=== PATIENT | female | born 1960 | race Caucasian/White ===

== ENCOUNTER 2018-04-28 12:18 | Outpatient (CLI) | payer OTHER ==
--- NOTE | 2018-04-28 15:06 | RAD ---
CHEST PA AND LATERAL: HISTORY: A 57-year-old female with a history of cough for three weeks. COMPARISON: 03/17/2014 FINDINGS: Heart size is within normal limits. Lungs are clear. No pneumonia, edema, pleural effusion, or othe r acute process. IMPRESSION: No active intrathoracic disease. Stable from prior study. No evidence for pneumonia. POS: [facility]
== END 2018-04-28 12:19 | disposition home or self-care (01) ==
LOC: BICRAD 12:18
PROVIDERS: ATTEND Internal Medicine
DX: R05 Cough (principal)
CPT/HCPCS: 71046

== ENCOUNTER 2018-10-03 23:14 | Emergency (ER) | payer OTHER ==
[~2018-10-03 23:14] MED LIST: ISOVUE-370 76%-LOCM 1 ML ONE
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
[2018-10-03] MEDS ORDERED: Fentanyl 100 MCG/2 ML VIAL ONE (23:48)
[2018-10-03] MEDS ORDERED: Ondansetron PF 4 MG/2 ML Vial ONE (23:48)
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
[2018-10-04] MEDS ORDERED: Adacel (T-DAP) 0.5 ML SYRINGE ONE (00:29)
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
== END 2018-10-04 01:02 | disposition home or self-care (01) ==
LOC: ERS 23:14
DX: S16.1XXA Strain of muscle, fascia and tendon at neck level, initial encounter (principal); I10 Essential (primary) hypertension; K21.9 Gastro-esophageal reflux disease without esophagitis; V49.9XXA Car occupant (driver) (passenger) injured in unspecified traffic accident, initial encounter
CPT/HCPCS: 70450; 71260; 72125; 74177; 90471; 90715; 96361; 96374; 96375; G0390; J2405; J3010; Q9966

== ENCOUNTER 2018-10-29 10:10 | Outpatient (CLI) | payer OTHER ==
--- NOTE | 2018-10-29 13:56 | NM ---
WHOLE BODY BONE SCAN: HISTORY: Renal mass, cancer RADIOPHARMACEUTICAL: 30 mCi technetium 99m-MDP injected intravenously COMPARISON: None CORRELATION: CT scan of the chest, abdomen and pelvis dated 10/03/2018 FINDINGS: There scattered degenerative activity in the cervical spine and appendicular skeleton. No other abnormal areas of tracer localization is seen in the skeleton to suggest metastatic disease. Tracer excretion through the kidneys is within normal limits. IMPRESSION: No scintigraphic evidence of osseous metastatic disease.
== END 2018-10-29 10:11 | disposition home or self-care (01) ==
LOC: NM 10:10
PROVIDERS: ATTEND Urology
DX: N28.89 Other specified disorders of kidney and ureter (principal)
CPT/HCPCS: 78306; A9503

== ENCOUNTER 2018-12-08 08:36 | Outpatient (CLI) | payer OTHER ==
--- NOTE | 2018-12-08 09:58 | RAD ---
EXAM: Chest PA and lateral: HISTORY: Preoperative exam. COMPARISON: 04/28/2018 FINDINGS: Heart: Normal cardiac silhouette Aorta: Unremarkable Pulmonary vessels: Normal Costophrenic angles: Costophrenic angles are clear. Lungs: No consolidation or masses. Pneumothorax: No pneumothorax Osseous structures: No osseous abnormalities IMPRESSION: No acute cardiopulmonary process.
[2018-12-08 10:44] LABS: #Eosinphils 0.1 thou/uL (0.0-0.7); #Monocytes 0.4 thou/uL (0.11-0.59); #Neutrophils 3.9 thou/uL (1.40-6.50); %Basophils 0.5 % (0.0-1.0); %Eosinophils 0.9 % (0.0-10.0); %Lymphocytes 31.5 % (21.0-51.0); %Monocytes 5.7 % (0.0-10.0); %Neutrophils 61.4 % (42.0-75.0); Mean Corpuscular HGB CONC 33.1 g/dL (32.0-36.0); Mean Corpuscular Hemoglobin 26.8 pg (27.0-31.0); Mean Corpuscular Volume 80.8 fL (78.0-98.0); Mean Platelet Volume 8.3 fL (7.4-10.4); Platelet Count 242 thou/uL (130-400); RBC Distribution Width 14.4 % (11.5-14.5); Red Blood Cell (RBC) Count 4.84 mill/uL (4.20-5.40); White Blood Cell (WBC) Count 6.3 thou/uL (4.8-10.8)
[2018-12-08 10:53] LABS: INR-International Normal Ratio 0.9; PTT 30.3 SEC (22.9-36.1); Prothrombin Time 12.4 SEC (12.0-14.7)
[2018-12-08 11:14] LABS: Anion Gap 13 mmol/L (10-20); BUN (Urea Nitrogen) 35 mg/dL (9.8-20.1); Calc. Creatinine Clearance 0 mL/min (70-130); Calcium 10.2 mg/dL (7.8-10.44); Carbon Dioxide 29 mmol/L (22-29); Chloride 102 mmol/L (98-107); Estimated GFR-MDRD 49; Glucose 100 mg/dL (70-105); Potassium 3.8 mmol/L (3.5-5.1); Sodium 140 mmol/L (136-145)
== END 2018-12-08 08:37 | disposition home or self-care (01) ==
LOC: LABBT 08:36
PROVIDERS: ATTEND Urology
DX: Z01.818 Encounter for other preprocedural examination (principal); N28.89 Other specified disorders of kidney and ureter
CPT/HCPCS: 71046; 80048; 85025; 85610; 85730; 87086

== ENCOUNTER 2018-12-08 08:45 | Inpatient (IN) | payer OTHER ==
[2018-12-08 08:46] VITALS: BMI 34.9
[2018-12-22] MEDS ORDERED: Scopolamine 1.5 mg/72 hour Patch ONE (11:33)
[2018-12-22 11:57] LABS: Bilirubin Negative (Negative); Blood, Urine Negative (Negative); Clarity Clear (Clear); Glucose, Urine (Dipstick) Normal (Negative); Leukocyte Negative Leu/uL (Negative); Nitrite Negative (Negative); Protein, Urine (Dipstick) Negative (Neg-Trace); RBC/HPF 0-3 HPF (0-3); Squamous Epithelial 0-3 HPF (0-3); Urobilinogen Normal mg/dL (Less than 2); WBC/HPF 0-3 HPF (0-3)
[2018-12-22 12:06] LABS: Bacteria/HPF Rare-Few HPF (None Seen)
[2018-12-22] MEDS ORDERED: Fentanyl 100 MCG/2 ML VIAL ONE ×2 (12:09→12:55)
[2018-12-22] MEDS ORDERED: Midazolam HCl 2 mg/2 ml Vial ONE (12:09)
[2018-12-22] MEDS ORDERED: Promethazine HCl 25 MG/ML VIAL IM PRN ×2 (12:30→15:04)
[2018-12-22] MEDS ORDERED: Naloxone HCl 0.4 mg/ml Vial IV PRN (12:30)
[2018-12-22] MEDS ORDERED: Naloxone HCl 0.4 mg/ml Vial IVP PRN (12:30)
[2018-12-22] MEDS ORDERED: Hydrocerin (Eucerin) Cream 120 gm Jar TOP PRN (12:30)
[2018-12-22] MEDS ORDERED: diphenhydrAMINE 50 MG/ML VIAL IVP PRN (12:30)
[2018-12-22] MEDS ORDERED: diphenhydrAMINE 25 MG CAP PO PRN (12:30)
[2018-12-22] MEDS ORDERED: traMADol HCl 50 MG TAB PO PRN (12:30)
[2018-12-22] MEDS ORDERED: Zolpidem Tartrate 5 MG TAB PO PRN (12:30)
[2018-12-22] MEDS ORDERED: Promethazine HCl 25 MG SUPP PR PRN (12:30)
[2018-12-22] MEDS ORDERED: diphenhydrAMINE 50 MG/ML VIAL IM PRN (12:30)
[2018-12-22] MEDS ORDERED: Bupivacaine 0.25% 10 ML VIAL EPIDURAL PRN (12:30)
[2018-12-22] MEDS ORDERED: Bacitracin Zinc Ointment 30 gm TUBE ONE (12:44)
[2018-12-22] MEDS ORDERED: Famotidine/PF 20 mg/2ml Vial ONE (12:55)
[2018-12-22] MEDS ORDERED: SUGAMMADEX SODIUM 500 MG/5 ML VIAL ONE (12:59)
[2018-12-22] MEDS ORDERED: Ropivacaine 0.2% HCl/PF 20 ML ONE (13:01)
[2018-12-22] MEDS ORDERED: Albumin 5% 500 ML ONE (14:41)
[2018-12-22] MEDS ORDERED: Promethazine HCl 25 MG/ML VIAL SLOW IVP PRN (15:04)
[2018-12-22] MEDS ORDERED: Ondansetron HCl/PF 4 MG/2 ML Vial IVP PRN (15:04)
[2018-12-22] MEDS ORDERED: Ondansetron PF 4 MG/2 ML Vial ONE (15:23)
[2018-12-22] MEDS ORDERED: Metoclopramide HCl 10 MG/2 ML VIAL ONE (15:23)
[2018-12-22] MEDS ORDERED: Dexamethasone 20 MG/5 ML VIAL ONE (15:23)
[2018-12-22] MEDS ORDERED: ePHEDrine 50 MG/ML VIAL ONE (15:23)
[2018-12-22] MEDS ORDERED: Succinylcholine Chloride 20 MG/ML 10 ml SYRINGE FS ONE (15:23)
[2018-12-22] MEDS ORDERED: Rocuronium Bromide 10 MG/ML (10ML VIAL) ONE (15:23)
[2018-12-22] MEDS ORDERED: Lidocaine 1% PF 5 ML VIAL ONE (15:23)
[2018-12-22] MEDS ORDERED: PROPOFOL 200 MG/20 ML VIAL ONE (15:23)
[2018-12-22] MEDS ORDERED: ePHEDrine/0.9% NaCl/PF SYRINGE 50 mg/10 ml ONE (15:47)
--- NOTE | 2018-12-22 16:11 | RAD ---
Chest one view HISTORY: Dyspnea. Recent nephrectomy. Evaluate for left pneumothorax. FINDINGS: Cardiac silhouette is projection. Rightward. Pulmonary vasculature are accentuated by shall ow inspiration. Elevation of the right hemidiaphragm with linear parenchymal opacity at the right mid chest that likely represents atelectasis. Left lung is well-inflated. No evidence of pneumothorax. IMPRESSION: No evidence of pneumothorax. Linear atelectasis right lung base.
--- NOTE | 2018-12-22 16:19 | OP ---
DATE OF PROCEDURE: 12/22/2018 SERVICE: Urology. STYLE ADVISOR: Dr. Kaela Mixon. PREOPERATIVE DIAGNOSIS: Left renal mass. POSTOPERATIVE DIAGNOSIS: Left renal mass. PROCEDURE PERFORMED: Left retroperitoneal open radical nephrectomy. INDICATIONS FOR PROCEDURE: Ms. Dunlap is a 58-year-old white female, who initially presented to me with CT imaging demonstrating approximately 6.8 cm left renal mass. We discussed options for treatment, and staging did not demonstrate any evidence of metastatic disease. Risks and benefits of open nephrectomy were discussed and she has agreed to proceed forward. DESCRIPTION OF PROCEDURE: After identification of armband and verification of consent, the patient was brought back to the operating room, where she underwent general anesthesia with endotracheal intubation. She had a preoperative epidural placed. She was placed in the right lateral decubitus position in the modified flank with all pressure points padded. An axillary roll was also used. She was secured to the table and then prepped and draped in usual sterile fashion. Initial incision was made between the 11th and 12th rib with a #10 blade through the dermis and subcutaneous tissues. Bovie electrocautery was then used to dissect down to the external and then internal oblique aponeurosis. We hugged near to close the bottom of the 11th rib to get through the transversalis fascia into the retroperitoneal space. The remainder of the incision was then opened, using digital dissection along with sponge sticks to open the retroperitoneal space. The peritoneum was carefully dissected away from the retroperitoneum and retracted anteriorly. The posterior aspect of the kidney was fully dissected away from the psoas muscle. The inferior aspect was then dissected until the ureter and gonadal vein were found. The ureter was isolated with a vessel loop. The remainder of the fatty tissue was then divided using a LigaSure device. The superior pole of the kidney was done through the same manner just with either digital dissection or dissection with the LigaSure device. Dissection was then carried alongside the gonadal vein superiorly until the renal vein was identified. The renal vein was then dissected exposing the renal artery just superior to this. The remainder of the fatty tissue superior to the renal artery was cleared away using the LigaSure device until the only attachment left was the gonadal vein, ureter, and hilum. The ureter was clipped and divided as was the gonadal vein. The surgical 60 cm vascular loaded stapler was then used to position over the renal hilum. The hilum was stapled shut, allowing the entire kidney to be removed. This was then sent off for routine pathologic evaluation. The retroperitoneum was then fully irrigated. There was found to be no additional bleeding. FloSeal was placed near the renal hilum to help coagulation of any parasitic or adjacent vessels that may be still bleeding, although none were seen. The adrenal was not seen any time during the case and it is unclear if this was removed with the specimen or if it is still in situ. Prior to placing the FloSeal, the retroperitoneum was fully irrigated with sterile water, and respiration of the lungs was performed using the ventilator to check for an air leak or pneumothorax, although none was definitively seen. After all of the irrigation was evacuated, the FloSeal was applied as described above. No drain was needed, and so closure was began with a #1 PDS, both from the posterior and anterior position for the internal oblique aponeurosis and again for the external oblique aponeurosis. The Chapo was applied into the subcutaneous tissues after irrigating the subcu tissues and then the skin closed with surgical skin stapler. A dressing was applied. The patient was then taken out of positioning, returned to the supine position and awakened and taken to PACU for recovery in stable condition. COMPLICATIONS: None. ESTIMATED BLOOD LOSS: 300 mL. RETAINED TUBES AND DRAINS: A 16-Armenian Cid catheter. SPECIMENS: Left kidney. DISPOSITION: The patient will be admitted to the hospital for postoperative recovery. After discharge, her cancer surveillance will be handled on an outpatient basis. Job ID: [id number]
[2018-12-22] MEDS ORDERED: Bisacodyl 10 MG SUPP PR PRN (16:29)
[2018-12-22] MEDS ORDERED: Bupivacaine 0.5% 10 ML VIAL ONE (16:54)
[2018-12-22] MEDS: Sodium Chloride 0.9% 1,000 ML IV SCH (18:00)
[2018-12-22 18:11] LABS: Hemoglobin 9.9 g/dL (12.0-16.0); Mean Corpuscular HGB CONC 31.9 g/dL (32.0-36.0); Mean Corpuscular Hemoglobin 25.7 pg (27.0-31.0); Mean Corpuscular Volume 80.8 fL (78.0-98.0); Mean Platelet Volume 8.1 fL (7.4-10.4); Platelet Count 175 thou/uL (130-400); RBC Distribution Width 14.4 % (11.5-14.5); Red Blood Cell (RBC) Count 3.85 mill/uL (4.20-5.40); White Blood Cell (WBC) Count 9.5 thou/uL (4.8-10.8)
[2018-12-22 18:32] LABS: Anion Gap 10 mmol/L (10-20); BUN (Urea Nitrogen) 27 mg/dL (9.8-20.1); Calc. Creatinine Clearance 59 mL/min (70-130); Calcium 8.7 mg/dL (7.8-10.44); Carbon Dioxide 27 mmol/L (22-29); Chloride 105 mmol/L (98-107); Estimated GFR-MDRD 39; Glucose 141 mg/dL (70-105); Potassium 3.1 mmol/L (3.5-5.1); Sodium 139 mmol/L (136-145)
[2018-12-22] MEDS: Ondansetron PF 4 MG/2 ML Vial IVP PRN (19:21)
[2018-12-22] MEDS: CEFAZOLIN 1 GM in Sodium Chloride 0.9% 100 ML IVPB SCH (21:53)
[2018-12-22] MEDS: Docusate 100 MG CAP PO SCH (21:54)
[2018-12-22] MEDS: Timolol 0.5% Ophth Soln 5 ml Bottle EA EYE SCH (21:54)
[2018-12-22] MEDS: traMADol HCl 50 MG TAB PO PRN (22:14)
[2018-12-23] MEDS: HYDROcodone/Acetaminophen 5/325 mg Tablet PO PRN (02:05)
[2018-12-23] MEDS: Sodium Chloride 0.9% 1,000 ML IV SCH ×2 (04:15→14:11)
[2018-12-23] MEDS: CEFAZOLIN 1 GM in Sodium Chloride 0.9% 100 ML IVPB SCH ×2 (05:11→14:11)
[2018-12-23] MEDS: Fentanyl 5 mcg/Bup 0.075% Cadd 100 ML EPIDURAL SCH ×2 (05:30→18:06)
[2018-12-23 06:00] LABS: #Basophils 0.1 thou/uL (0.0-0.2); #Lymphocytes 0.7 thou/uL (1.20-3.40); #Monocytes 0.3 thou/uL (0.11-0.59); #Neutrophils 7.9 thou/uL (1.40-6.50); %Basophils 0.7 % (0.0-1.0); %Eosinophils 0.1 % (0.0-10.0); %Lymphocytes 7.9 % (21.0-51.0); %Monocytes 3.7 % (0.0-10.0); %Neutrophils 87.7 % (42.0-75.0); Hemoglobin 10.1 g/dL (12.0-16.0); Mean Corpuscular HGB CONC 32.4 g/dL (32.0-36.0); Mean Corpuscular Hemoglobin 26.2 pg (27.0-31.0); Mean Corpuscular Volume 81.1 fL (78.0-98.0); Mean Platelet Volume 8.4 fL (7.4-10.4); Platelet Count 182 thou/uL (130-400); Red Blood Cell (RBC) Count 3.87 mill/uL (4.20-5.40)
[2018-12-23 06:22] LABS: Anion Gap 9 mmol/L (10-20); BUN (Urea Nitrogen) 28 mg/dL (9.8-20.1); Calc. Creatinine Clearance 50 mL/min (70-130); Calcium 8.6 mg/dL (7.8-10.44); Carbon Dioxide 26 mmol/L (22-29); Chloride 107 mmol/L (98-107); Estimated GFR-MDRD 33; Glucose 169 mg/dL (70-105); Potassium 4.1 mmol/L (3.5-5.1); Sodium 138 mmol/L (136-145)
[2018-12-23] MEDS: Timolol 0.5% Ophth Soln 5 ml Bottle EA EYE SCH ×2 (08:08→20:59)
[2018-12-23] MEDS: Triamterene/Hydrochlorothiazide 37.5 mg/25 mg Tablet PO SCH (08:09)
[2018-12-23] MEDS: Docusate 100 MG CAP PO SCH ×2 (08:09→20:59)
[2018-12-23] MEDS: Ondansetron PF 4 MG/2 ML Vial IVP PRN (09:54)
[2018-12-23] MEDS: traMADol HCl 50 MG TAB PO PRN (16:59)
[2018-12-24] MEDS: Sodium Chloride 0.9% 1,000 ML IV SCH ×3 (00:08→09:18)
[2018-12-24] MEDS: Fentanyl 5 mcg/Bup 0.075% Cadd 100 ML EPIDURAL SCH (06:57)
[2018-12-24 07:03] LABS: #Lymphocytes 2.2 thou/uL (1.20-3.40); #Monocytes 0.6 thou/uL (0.11-0.59); #Neutrophils 5.3 thou/uL (1.40-6.50); %Basophils 0.4 % (0.0-1.0); %Eosinophils 0.5 % (0.0-10.0); %Lymphocytes 26.5 % (21.0-51.0); %Monocytes 7.7 % (0.0-10.0); %Neutrophils 64.9 % (42.0-75.0); Mean Corpuscular HGB CONC 30.9 g/dL (32.0-36.0); Mean Corpuscular Hemoglobin 25.6 pg (27.0-31.0); Mean Corpuscular Volume 83.1 fL (78.0-98.0); Mean Platelet Volume 8.1 fL (7.4-10.4); Platelet Count 157 thou/uL (130-400); RBC Distribution Width 14.4 % (11.5-14.5); Red Blood Cell (RBC) Count 3.49 mill/uL (4.20-5.40); White Blood Cell (WBC) Count 8.2 thou/uL (4.8-10.8)
[2018-12-24 07:23] LABS: Anion Gap 11 mmol/L (10-20); BUN (Urea Nitrogen) 31 mg/dL (9.8-20.1); Calc. Creatinine Clearance 47 mL/min (70-130); Calcium 8.3 mg/dL (7.8-10.44); Carbon Dioxide 22 mmol/L (22-29); Chloride 108 mmol/L (98-107); Estimated GFR-MDRD 31; Glucose 92 mg/dL (70-105); Potassium 3.7 mmol/L (3.5-5.1); Sodium 137 mmol/L (136-145)
[2018-12-24] MEDS: Triamterene/Hydrochlorothiazide 37.5 mg/25 mg Tablet PO SCH (09:08)
[2018-12-24] MEDS: Docusate 100 MG CAP PO SCH ×2 (09:17→20:27)
[2018-12-24] MEDS: Timolol 0.5% Ophth Soln 5 ml Bottle EA EYE SCH ×2 (09:17→20:27)
[2018-12-24] MEDS: Heparin 5,000 UNITS/ML VIAL SC SCH ×2 (09:18→20:27)
--- NOTE | 2018-12-24 09:43 | PRG ---
DATE OF SERVICE: 12/23/2018 SUBJECTIVE: The patient states that she is feeling okay. A little sore, especially in her left upper quadrant and left flank. Her epidural seems to be working well as she states that the pain is not excessive. She has not passed any gas. She is a little hungry and states that she would like to try some food today. She has not yet gotten up out of bed. OBJECTIVE: VITAL SIGNS: Temperature 97.9, pulse 82, respirations are 16, blood pressure 95/58, and saturation 94% on room air. GENERAL: No apparent distress. Communicative and alert. CARDIOVASCULAR: Regular rate and rhythm. ABDOMEN: Soft, nontender, and nondistended. Hypoactive bowel sounds. Incision is dressed. : Cid catheter in place with clear yellow urine. EXTREMITIES: SCDs in place. LABORATORY EVALUATION: The full set of labs are in the [employer] system, which I have reviewed. Of note, the patient's white count is 9 with hemoglobin of 10.1 and creatinine is 1.62. ASSESSMENT AND PLAN: A 58-year-old white female with renal cell carcinoma, status post open retroperitoneal left nephrectomy, postoperative day #1. She is recovering appropriately. She is beginning to show signs of renal insufficiency as expected after removal of one of her kidneys. We will continue to monitor these labs. I think we can advance her diet as we did not enter the peritoneal cavity. For now, her p.o. intake is slightly poor, so we will continue with the IV fluids. If her hemoglobin remains stable, we will begin subcu heparin. I have encouraged the patient to get out of bed and sit in a chair today and continue to do incentive spirometer. SCDs should be continued. Job ID: [id number]
--- NOTE | 2018-12-24 09:48 | PRG ---
DATE OF SERVICE: 12/24/2018 SUBJECTIVE: The patient states that she is feeling okay. She has been tolerating a regular diet. No flatus or bowel movements. Her pain is adequately controlled with the epidural. She is also using p.o. pain medication. She states her nausea has decreased today. She has gotten up and sat in a chair as well as walked in the hallways. OBJECTIVE: VITAL SIGNS: Temperature 98.3, pulse 76, respirations 16, blood pressure 99/65, and saturation 95% on room air. GENERAL: No apparent distress, communicative and alert. CARDIOVASCULAR: Regular rate and rhythm. ABDOMEN: Soft, nontender, and nondistended. Bowel sounds present. Incision is dressed. : Cid catheter in place with clear yellow urine. EXTREMITIES: SCDs on bilaterally. LABORATORY EVALUATION: The full set of labs are in the [employer] [facility], which I have reviewed. Of note, the patient's hemoglobin is 9 with a white count of 8.2. Creatinine is 1.71. ASSESSMENT AND PLAN: A 58-year-old white female with left renal mass status post open radical nephrectomy on the left, postop day 2. She is exhibiting signs of chronic renal insufficiency, currently stage 3. Would recommend changing over to a renal diet to avoid any nephrotoxicity. We will start heparin 5000 units subcu b.i.d. for deep venous thrombosis prophylaxis. Ambulation and sequential compression device should be continued. Incentive spirometer should also be continued. I would like to start trying to wean down the epidural today and transition her over to oral pain medication. We will continue IV fluids until the patient is exhibiting good p.o. intake of fluids that she will not require the IV fluids on her own. Job ID: [id number]
--- NOTE | 2018-12-24 14:40 | PQF ---
DATE: 12-24-18 ATTN: DR. ASHLY GILLETTE Please exercise your independent, professional judgment in responding to the clarification form. Clinical indicators are provided on the bottom of this form for your review Please check appropriate box(s): [X ] Acute Renal Failure (ARF) / Acute Kidney Injury (HARINI) [ ] Insignificant Lab Values [ ] Other diagnosis [ ] Unable to determine In addition, please specify: Present on Admission (POA): [ ] Yes [ X ] No [ ] Unable to determine National Kidney Foundation Guidelines for CKD Staging Stage I Kidney damage with normal or increased GFR GFR > 90 Stage II Kidney damage with mildly decreased GFR GFR 60-89 Stage III Kidney damage with moderately decreased GFR GFR 30 -59 Stage IV Kidney damage with severely decreased GFR GFR 16 -29 Stage V Kidney failure GFR<15 ESRD End Stage Renal Disease On dialysis Acute Renal Failure/Acute Kidney Failure defined as: Increases in SCr by (>) 0.3 mg/dl within 48 hours OR- Increases in SCr by (>) 1.5 times baseline, known or presumed to have occurred within the prior 7 days OR- Urine volume < 0.5 ml/kg/hour for 6 hours (KDIGO supplement 2012 for RIFLE/DORIS criteria) For continuity of documentation, please document condition throughout progress notes and discharge summary. Thank You. CLINICAL INDICATORS - SIGNS / SYMPTOMS / LABS: GFR: 12-22-18: 39 12-23-18: 33 12-24-18: 31 CREATININE: 12-22-18: 1.37 12-23-18: 1.62 12-24-18: 1.71 BUN: 12-22-18: 27 12-23-18: 28 12-24-18: [address] GILLETTE 12-23-18: SHE IS BEGINNING TO SHOW SIGNS OF RENAL INSUFFICIENCY EXPECTED AFTER REMOVING ONE OF HER KIDNEYS RISK FACTORS: PN DR. GILLETTE 12-23-18: SHE IS BEGINNING TO SHOW SIGNS OF RENAL INSUFFICIENCY EXPECTED AFTER REMOVING ONE OF HER KIDNEYS TREATMENTS: PN DR. GILLETTE 12-23-18: CONTINUE TO MONITOR LABS, CONTINUE IVF (This form is maintained as a part of the permanent medical record) 2014 [employer] All Rights Reserved MIAN [email or web address] Office: [phone] [facility]
[2018-12-24] MEDS: HYDROcodone/Acetaminophen 5/325 mg Tablet PO PRN ×2 (14:48→19:20)
[2018-12-25] MEDS: Fentanyl 5 mcg/Bup 0.075% Cadd 100 ML EPIDURAL SCH (00:45)
[2018-12-25 06:43] LABS: #Lymphocytes 1.5 thou/uL (1.20-3.40); #Monocytes 0.5 thou/uL (0.11-0.59); #Neutrophils 3.8 thou/uL (1.40-6.50); %Basophils 0.2 % (0.0-1.0); %Eosinophils 0.5 % (0.0-10.0); %Lymphocytes 25.8 % (21.0-51.0); %Monocytes 9.1 % (0.0-10.0); %Neutrophils 64.4 % (42.0-75.0); Hemoglobin 8.8 g/dL (12.0-16.0); Mean Corpuscular HGB CONC 31.2 g/dL (32.0-36.0); Mean Corpuscular Hemoglobin 25.8 pg (27.0-31.0); Mean Corpuscular Volume 82.5 fL (78.0-98.0); Mean Platelet Volume 8.2 fL (7.4-10.4); Platelet Count 168 thou/uL (130-400); RBC Distribution Width 14.3 % (11.5-14.5); Red Blood Cell (RBC) Count 3.43 mill/uL (4.20-5.40)
[2018-12-25] MEDS: HYDROcodone/Acetaminophen 5/325 mg Tablet PO PRN ×2 (06:48→11:16)
[2018-12-25 07:00] LABS: Anion Gap 9 mmol/L (10-20); BUN (Urea Nitrogen) 30 mg/dL (9.8-20.1); Calc. Creatinine Clearance 47 mL/min (70-130); Calcium 8.7 mg/dL (7.8-10.44); Carbon Dioxide 25 mmol/L (22-29); Chloride 108 mmol/L (98-107); Estimated GFR-MDRD 31; Glucose 96 mg/dL (70-105); Potassium 3.7 mmol/L (3.5-5.1); Sodium 138 mmol/L (136-145)
[2018-12-25] MEDS: Docusate 100 MG CAP PO SCH ×2 (10:20→20:23)
[2018-12-25] MEDS: Triamterene/Hydrochlorothiazide 37.5 mg/25 mg Tablet PO SCH (10:20)
[2018-12-25] MEDS: Heparin 5,000 UNITS/ML VIAL SC SCH ×2 (10:21→20:23)
[2018-12-25] MEDS: Timolol 0.5% Ophth Soln 5 ml Bottle EA EYE SCH ×2 (10:25→20:22)
[2018-12-25] MEDS ORDERED: HYDROcodone/Acetaminophen 10/325 mg Tablet PO PRN (12:51)
[2018-12-25] MEDS ORDERED: Fentanyl 100 MCG/2 ML VIAL SLOW IVP PRN (12:52)
[2018-12-25] MEDS: HYDROcodone/Acetaminophen 10/325 mg Tablet PO PRN ×2 (17:34→21:49)
--- NOTE | 2018-12-25 19:00 | PRG ---
DATE OF SERVICE: 12/25/2018 SERVICE: Urology. SUBJECTIVE: The patient states she is feeling fine. Her epidural was removed this morning. She has no complaints. She is eating and tolerating a diet well. Her pain control has been relatively good with pain pills, although she has required IV morphine. She has been up out of bed, walking. OBJECTIVE: VITAL SIGNS: Temperature 98.2, pulse 81, respirations 20, blood pressure 118/75, and saturating 92% on room air. GENERAL: No apparent distress, communicating, and alert. CARDIOVASCULAR: Regular rate and rhythm. ABDOMEN: Soft, nontender, and nondistended. Positive bowel sounds. Incision clean, dry, and intact. Dressing removed. : Cid catheter in place with clear yellow urine. EXTREMITIES: SCDs in place bilaterally. LABORATORY EVALUATION: Full set of labs are in the [employer] System, which I have reviewed. Hemoglobin is 8.8. Creatinine is 1.71, which is stable. ASSESSMENT AND PLAN: A 58-year-old white female, status post left retroperitoneal open nephrectomy, postop day 3, recovering extremely well. We will remove her catheter today. She is off IV fluid. She should continue to ambulate and use her incentive spirometer. If she is able to keep her pain controlled, ambulate properly, tolerate p.o. liquids and food and if her labs look good tomorrow, I think she may be able to be discharged. We will re-evaluate tomorrow. Job ID: [id number]
[2018-12-26 04:29] LABS: #Eosinphils 0.1 thou/uL (0.0-0.7); #Lymphocytes 1.4 thou/uL (1.20-3.40); #Monocytes 0.5 thou/uL (0.11-0.59); #Neutrophils 3.3 thou/uL (1.40-6.50); %Basophils 0.1 % (0.0-1.0); %Eosinophils 1.1 % (0.0-10.0); %Lymphocytes 26.8 % (21.0-51.0); %Monocytes 8.5 % (0.0-10.0); %Neutrophils 63.5 % (42.0-75.0); Hemoglobin 8.6 g/dL (12.0-16.0); Mean Corpuscular HGB CONC 31.8 g/dL (32.0-36.0); Mean Corpuscular Hemoglobin 26.1 pg (27.0-31.0); Mean Corpuscular Volume 81.9 fL (78.0-98.0); Mean Platelet Volume 8.1 fL (7.4-10.4); Platelet Count 161 thou/uL (130-400); RBC Distribution Width 14.1 % (11.5-14.5); Red Blood Cell (RBC) Count 3.31 mill/uL (4.20-5.40); White Blood Cell (WBC) Count 5.2 thou/uL (4.8-10.8)
[2018-12-26 05:21] LABS: Anion Gap 9 mmol/L (10-20); BUN (Urea Nitrogen) 28 mg/dL (9.8-20.1); Calc. Creatinine Clearance 54 mL/min (70-130); Calcium 8.6 mg/dL (7.8-10.44); Carbon Dioxide 26 mmol/L (22-29); Chloride 107 mmol/L (98-107); Estimated GFR-MDRD 36; Glucose 99 mg/dL (70-105); Potassium 3.7 mmol/L (3.5-5.1); Sodium 138 mmol/L (136-145)
[2018-12-26 08:10] VITALS: BP 126/76; TEMP 98
[2018-12-26] MEDS: Timolol 0.5% Ophth Soln 5 ml Bottle EA EYE SCH (08:31)
[2018-12-26] MEDS: Triamterene/Hydrochlorothiazide 37.5 mg/25 mg Tablet PO SCH (08:32)
[2018-12-26] MEDS: Docusate 100 MG CAP PO SCH (08:32)
[2018-12-26] MEDS: Heparin 5,000 UNITS/ML VIAL SC SCH (08:33)
--- NOTE | 2018-12-26 15:16 | PRG ---
DATE OF SERVICE: 12/26/2018 SUBJECTIVE: The patient states she is doing well. Her catheter was removed yesterday and she has voided since. Her pain is controlled on p.o. pain medications only. She has not required any IV pain medication. She still has not had a bowel movement, but states that she is tolerating good p.o. both liquid and food without nausea or vomiting. She has been out of bed, walking on her own. OBJECTIVE: VITAL SIGNS: Temperature 98, pulse 80, respirations 18, blood pressure 126/76, and saturation 96% on room air. GENERAL: No apparent distress, communicating, and alert. CARDIOVASCULAR: Regular rate and rhythm. ABDOMEN: Soft, nontender, and nondistended. Positive bowel sounds. : No catheter. EXTREMITIES: SCDs in place bilaterally. LABORATORY EVALUATION: Full set of labs are in the [employer] system, which I have reviewed. Of note, hemoglobin is 8.6 with a creatinine of 1.48. ASSESSMENT AND PLAN: A 58-year-old white female with clear cell carcinoma of the left kidney, status post left nephrectomy, postoperative day #4. She is recovering quite well. She actually has made a sufficient recovery that I think that she can go home at this point. She has met all of my criteria. I would recommend light activity without any strenuous lifting. No submerging under water. I will plan to see her back in approximately 2 weeks for staple removal, and we will handle her surveillance on an outpatient basis. Job ID: [id number]
--- NOTE | 2018-12-26 16:51 | DIS ---
DATE OF ADMISSION: 12/22/2018 DATE OF DISCHARGE: 12/26/2018 ADMITTING DIAGNOSIS: Left renal mass. DISCHARGE DIAGNOSIS: Left clear cell carcinoma. PROCEDURE PERFORMED: On the patient is left open retroperitoneal radical nephrectomy. BRIEF HISTORY: Mrs. Dunlap is a 58-year-old white female with a left approximately 6 cm renal mass. We discussed nephrectomy and after discussion of options, she agreed to proceed forward. Full H and P can be found in the scanned portion of the [employer] System. HOSPITAL COURSE: After surgery (please see operative note for details). The patient was admitted to the hospital for postoperative recovery. She had an epidural and Cid catheter in place as well as bilateral SCDs. Her diet was advanced from clear liquids to regular diet on postop day 1, which she tolerated well. She did require IV fluids for approximately one day after that. At which point, the IV fluids could be stopped due to sufficient p.o. intake. She was able to pass flatus and able to walk and her pain subsequently improved to the point, where she was able to have her epidural turned down and then subsequently off by postop day three. Her catheter was then subsequently removed and she was transitioned to oral pain medications. By postop day four, she was tolerating a regular diet, had been ambulating on her own, had her pain controlled with p.o. pain medications only, was taking insufficient amounts of food and fluids and had demonstrated all criteria for discharge. She has not yet had a bowel movement, but did not have any problems with nausea or vomiting. She is passing gas. Our laboratory evaluation did demonstrate some evidence of renal insufficiency and she had a creatinine as high as 1.7, which subsequently went down to approximately 1.5. Her hemoglobin remained stable within the 9 to 8 range. DISPOSITION: Discharged to home. DISCHARGE CONDITION: Good. DISCHARGE MEDICATIONS: The patient should resume all of her home medications except for lisinopril, which I have asked her to stop until she is able to follow up with her PCP to decide whether she needs to take it long-term and based on her renal function. She has been given tramadol and hydrocodone as well as Colace for postoperative pain control. She is to use the hydrocodone first and then transition to tramadol and subsequently just a Tylenol alone. She was encouraged not to use NSAIDs due to renal insufficiency. DISCHARGE INSTRUCTIONS: Include no heavy lifting over 20 pounds. No strenuous activities. No submerging under water. She may use dressings as needed on her incision. I have recommended she not drive for at least two weeks. She has a two week followup with me at which time I will go over her surveillance plan as well as remove her ester. Job ID: [id number]
== END 2018-12-26 13:20 | disposition home or self-care (01) | DRG 657 ==
LOC: SURG B 12-22 10:43 → SURG A 12-22 18:07
PROVIDERS: ADMIT Urology; ATTEND Urology
PROC: 0TT10ZZ Resection of Left Kidney, Open Approach (ICD-10-PCS; principal; 2018-12-22)
DX: C64.2 Malignant neoplasm of left kidney, except renal pelvis (principal); N17.9 Acute kidney failure, unspecified; Z88.0 Allergy status to penicillin; N18.3 Chronic kidney disease, stage 3 (moderate); I12.9 Hypertensive chronic kidney disease with stage 1 through stage 4 chronic kidney disease, or unspecified chronic kidney disease; I25.10 Atherosclerotic heart disease of native coronary artery without angina pectoris; J44.9 Chronic obstructive pulmonary disease, unspecified; E66.9 Obesity, unspecified; Z90.710 Acquired absence of both cervix and uterus; Z68.35 Body mass index [BMI] 35.0-35.9, adult
CPT/HCPCS: 36415; 71045; 80048; 81001; 85025; 85027; 86850; 86900; 86901; 87086; 88307; J0131; J0690; J1100; J1644; J2001; J2250; J2405; J2550; J2704; J2765; J2795; J3010; J3490; P9045; S0028

== ENCOUNTER 2020-02-20 11:43 | Emergency (ER) | payer BC ==
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
[2020-02-20] MEDS ORDERED: Boostrix 0.5 ML VIAL ONE (14:01)
[2020-02-20] MEDS ORDERED: Iopamidol-370 76% 500 ML 1 ML ONE (14:38)
== END 2020-02-20 14:21 | disposition home or self-care (01) ==
LOC: ERS 11:43
DX: S16.1XXA Strain of muscle, fascia and tendon at neck level, initial encounter (principal); S30.1XXA Contusion of abdominal wall, initial encounter; I10 Essential (primary) hypertension; K21.9 Gastro-esophageal reflux disease without esophagitis; V89.2XXA Person injured in unspecified motor-vehicle accident, traffic, initial encounter
CPT/HCPCS: 70450; 71260; 72125; 74177; 90471; 90715; Q9967

== ENCOUNTER 2020-03-16 08:48 | Outpatient (CLI) | payer BC ==
--- NOTE | 2020-03-16 10:21 | RAD ---
CERVICAL SPINE 5 VIEWS: INDICATION: Neck pain. COMPARISON: Prior CT cervical spine dated 02/20/2020. FINDINGS: The cervical spine on the lateral projection is seen only up to the C6 vertebral level. The swimmer' s lateral projection demonstrates cervical spine to the C7-T1 junction. No definite abnormal transla tion motion is evident. Prevertebral soft tissues are normal-appearing. Lung apices are clear. IMPRESSION: 1. Stable mild to moderate cervical spondylosis. 2. No abnormal translational motion. 3. No acute fracture or subluxation. POS: [facility]
== END 2020-03-16 08:49 | disposition home or self-care (01) ==
LOC: BICRAD 08:48
PROVIDERS: ATTEND Physician Assistant
DX: M54.2 Cervicalgia (principal); M47.812 Spondylosis without myelopathy or radiculopathy, cervical region
CPT/HCPCS: 72050

== ENCOUNTER 2021-03-22 10:39 | Outpatient (CLI) | payer BC | END 2021-03-22 10:40 | disposition home or self-care (01) | LOC: BICCT 10:39 | PROVIDERS: ATTEND Urology | DX: C64.2 Malignant neoplasm of left kidney, except renal pelvis (principal); N20.0 Calculus of kidney; K57.30 Diverticulosis of large intestine without perforation or abscess without bleeding; Z90.5 Acquired absence of kidney | CPT/HCPCS: 71046; 74176 ==

== ENCOUNTER 2022-03-20 10:44 | Outpatient (CLI) | payer BC | END 2022-03-20 10:45 | disposition home or self-care (01) | LOC: BICCT 10:44 | PROVIDERS: ATTEND Urology | DX: C64.2 Malignant neoplasm of left kidney, except renal pelvis (principal); R91.8 Other nonspecific abnormal finding of lung field; K57.30 Diverticulosis of large intestine without perforation or abscess without bleeding; N20.0 Calculus of kidney; Z90.710 Acquired absence of both cervix and uterus; Z90.5 Acquired absence of kidney | CPT/HCPCS: 74176 ==

== ENCOUNTER 2022-04-13 13:23 | Outpatient (CLI) | payer BC ==
[2022-04-13 15:49] LABS: Bilirubin Neg (Negative); Blood, Urine Negative (Negative); Clarity Clear (Clear); Glucose, Urine (Dipstick) Normal (Negative); Ketone, Urine Negative (Negative); Leukocyte Negative (Negative); Nitrite Negative (Negative); Protein, Urine (Dipstick) 30 mg/dl (Neg-Trace); Urobilinogen Normal mg/dL (Less than 2); pH, Urine 6.5 (5.0-9.0)
[2022-04-13 15:54] LABS: Bacteria/HPF Rare-Few HPF (None Seen); RBC/HPF 0-3 HPF (0-3); Squamous Epithelial 0-3 HPF (0-3); WBC/HPF None Seen HPF (0-3)
[2022-04-13 16:14] LABS: Mean Corpuscular HGB CONC 32.3 g/dL (32.0-36.0); Mean Corpuscular Hemoglobin 26.8 pg (27.0-33.0); Mean Corpuscular Volume 82.9 fl (81.6-98.3); Mean Platelet Volume 10.8 fl (7.4-10.4); Platelet Count 238 10x3/uL (150-450); RBC Distribution Width 14.6 % (11.5-14.5); Red Blood Cell (RBC) Count 4.85 10x6/uL (3.90-5.03); White Blood Cell (WBC) Count 5.9 10x3/uL (3.5-10.5)
[2022-04-13 16:18] LABS: Anion Gap 13 mmol/L (10-20); BUN (Urea Nitrogen) 29 mg/dL (9.8-20.1); Calc. Creatinine Clearance 0 mL/min (70-130); Calcium 9.5 mg/dL (7.8-10.44); Carbon Dioxide 28 mmol/L (23-31); Chloride 105 mmol/L (98-107); Estimated GFR 46; Glucose 68 mg/dL (80-115); Sodium 142 mmol/L (136-145)
[2022-04-13 16:39] LABS: INR-International Normal Ratio 0.9; PTT 26.8 sec (22.0-33.0); Prothrombin Time 10.1 sec (9.5-12.1)
== END 2022-04-13 13:24 | disposition home or self-care (01) ==
LOC: LABBT 13:23
PROVIDERS: ATTEND Urology
DX: Z01.818 Encounter for other preprocedural examination (principal); N20.0 Calculus of kidney
CPT/HCPCS: 80048; 81001; 85027; 85610; 85730; 87086; 93005; 93010

== ENCOUNTER 2022-04-26 08:45 | Day surgery (SDC) | payer BC ==
[2022-04-25 12:09] VITALS: BMI 39.2
[2022-04-26] MEDS ORDERED: Iopamidol 15 ML ONE (12:19)
[2022-04-26] MEDS ORDERED: Famotidine/PF 20 mg/2ml Vial ONE (12:28)
[2022-04-26] MEDS ORDERED: SUGAMMADEX SODIUM 200 MG/2 ML VIAL ONE (12:28)
[2022-04-26] MEDS ORDERED: fentaNYL PF 100 MCG/2 ML SYRINGE ONE (12:28)
[2022-04-26] MEDS ORDERED: Levofloxacin 500 mg/D5W 100 ml Premix Bag ONE (12:29)
[2022-04-26] MEDS ORDERED: PROPOFOL 200 MG/20 ML VIAL ONE (12:37)
[2022-04-26] MEDS ORDERED: Metoclopramide HCl 10 MG/2 ML VIAL ONE (12:37)
[2022-04-26] MEDS ORDERED: Ondansetron PF 4 MG/2 ML Vial ONE (12:37)
[2022-04-26] MEDS ORDERED: Dexamethasone 20 MG/5 ML VIAL ONE (12:37)
[2022-04-26] MEDS ORDERED: Rocuronium Bromide 10 MG/ML (10ML VIAL) ONE (12:37)
[2022-04-26] MEDS ORDERED: FENTANYL 50 MCG/ML 1 ML VIAL ONE (14:45)
== END 2022-04-26 15:54 | disposition home or self-care (01) ==
LOC: SDC 08:45
PROVIDERS: ATTEND Urology
PROC: 0TC38ZZ Extirpation of Matter from Right Kidney Pelvis, Via Natural or Artificial Opening Endoscopic (ICD-10-PCS; principal; 2022-04-26)
PROC: 0T768DZ Dilation of Right Ureter with Intraluminal Device, Via Natural or Artificial Opening Endoscopic (ICD-10-PCS; principal; 2022-04-26)
DX: N20.0 Calculus of kidney (principal); I12.9 Hypertensive chronic kidney disease with stage 1 through stage 4 chronic kidney disease, or unspecified chronic kidney disease; N18.32 Chronic kidney disease, stage 3b; K21.9 Gastro-esophageal reflux disease without esophagitis; Z85.528 Personal history of other malignant neoplasm of kidney; Z79.899 Other long term (current) drug therapy; Z88.0 Allergy status to penicillin; Z90.5 Acquired absence of kidney
CPT/HCPCS: 82365; 88300; C1713; C1769; C2617; J1100; J1956; J2405; J2704; J2765; J3010; Q9967; S0028

== ENCOUNTER 2022-09-26 12:09 | Outpatient (CLI) | payer BC | END 2022-09-26 12:10 | disposition home or self-care (01) | LOC: ULT 12:09 | PROVIDERS: ATTEND Urology | DX: C64.2 Malignant neoplasm of left kidney, except renal pelvis (principal); N18.32 Chronic kidney disease, stage 3b; N20.0 Calculus of kidney | CPT/HCPCS: 76770 ==